=== PATIENT | female | born 1950 | race Caucasian/White ===

== ENCOUNTER 2020-08-18 05:52 | Day surgery (SDC) | payer MEDICARE ==
[2020-08-15 13:01] LABS: COVID AG,FIA SOURCE NASOPHARYNGEAL
[~2020-08-18] VITALS: Ht 160 cm; Wt 54.1 kg
[~2020-08-18 05:52] MED LIST: SODIUM CHLORIDE 0.9% 0 ML ONE
[2020-08-18] MEDS ORDERED: LIDOCAINE 2% 30 ML JELLY TP ONE (05:53)
[2020-08-18] MEDS ORDERED: BENZOCAINE 20% 50 MCG/SPRAY 57 GM TP ONE (05:53)
[2020-08-18] MEDS ORDERED: ALBUTEROL SULFATE 2.5 MG/0.5 ML NEB SOLUTION NEB ONE (05:53)
[2020-08-18] MEDS ORDERED: SODIUM CHLORIDE 0.9% 1,000 ML ONE (06:23)
[2020-08-18 06:51] LABS: GLUCOMETER DEV NAME(LOC) SDS.; GLUCOSE,POINT OF CARE 319 MG/DL (70-110)
[2020-08-18] MEDS ORDERED: TOFA5TAB PO (07:03)
[2020-08-18] MEDS ORDERED: ALBU8.5H8 IH (07:03)
[2020-08-18] MEDS ORDERED: METH2.5 PO (07:03)
[2020-08-18] MEDS ORDERED: FLUT44HFA IH (07:03)
[2020-08-18] MEDS ORDERED: MONT-35 PO (07:03)
[2020-08-18] MEDS ORDERED: PIOG45TA4 PO (07:03)
[2020-08-18] MEDS ORDERED: FAMO20 PO (07:03)
[2020-08-18] MEDS ORDERED: PRED10 PO (07:03)
[2020-08-18] MEDS ORDERED: FOLI0.4T6 PO (07:03)
[2020-08-18] MEDS ORDERED: FLUT16H NASAL (07:03)
[2020-08-18] MEDS ORDERED: METF-960 PO (07:03)
[2020-08-18] MEDS ORDERED: GABA-1216 PO (07:03)
[2020-08-18] MEDS ORDERED: MIDAZOLAM HCL 2 MG/2 ML VIAL ONE (07:18)
[2020-08-18] MEDS ORDERED: FentaNYL CITRATE-PF 100 MCG/2 ML VIAL ONE (07:19)
[2020-08-18] MEDS: SODIUM CHLORIDE 0.9% 1,000 ML IV ONE (07:46)
[2020-08-18] MEDS ORDERED: MethylPREDNISolone SOD SUCC 125 MG/2 ML VIAL ONE (08:59)
[2020-08-18] MEDS: MethylPREDNISolone SOD SUCC 125 MG/2 ML VIAL IVP ONE (09:01)
[2020-08-18] MEDS ORDERED: OXYGEN THERAPY IH SCH (20:00)
== END 2020-08-18 10:05 | disposition home or self-care (01) ==
LOC: SDS 05:52 → EDSTATUS 09:30 → SDS 10:05
PROVIDERS: ATTEND Internal Medicine Critical Care Medicine
DX: J38.4 Edema of larynx (principal); B37.0 Candidal stomatitis; E11.9 Type 2 diabetes mellitus without complications; I10 Essential (primary) hypertension; Z20.828 Contact with and (suspected) exposure to other viral communicable diseases
CPT/HCPCS: 31623; 31624; 71045; 82962; 87015; 87101; 87206; 87220; 87426; 88108; 88312; C9803; J2250; J2930; J3010; J7030; 87070; J7613

== ENCOUNTER 2022-05-03 05:43 | Day surgery (SDC) | payer MEDICARE ==
[~2022-05-03] VITALS: Ht 157.5 cm; Wt 56.8 kg
[~2022-05-03 05:43] MED LIST changes: +ALBU8.5H8 IH; +FAMO20 PO; +FLUT16H NASAL; +FLUT44H IH; +FOLI0.4T6 PO; +GABA-1216 PO; +METF-1211 PO; +METH2.5 PO; +MONT-35 PO; +PIOG45TA4 PO; +PRED-729 PO; -SODIUM CHLORIDE 0.9% 0 ML ONE; +TOFA5TAB PO
[2022-05-03] MEDS ORDERED: ALBUTEROL SULFATE 2.5 MG/0.5 ML NEB SOLUTION NEB ONE (05:44)
[2022-05-03] MEDS ORDERED: BENZOCAINE 20% 50 MCG/SPRAY 57 GM TP ONE (05:44)
[2022-05-03] MEDS ORDERED: LIDOCAINE 2% 11 ML JELLY TP ONE (05:44)
[2022-05-03] MEDS ORDERED: LIDOCAINE 4% 50 ML SOLUTION TP ONE (05:44)
[2022-05-03 06:58] LABS: COVID AG,FIA SOURCE NASAL SWAB
[2022-05-03] MEDS ORDERED: SODIUM CHLORIDE 0.9% 1,000 ML IV ONE (07:00)
[2022-05-03 07:36] LABS: GLUCOMETER DEV NAME(LOC) SDS.; GLUCOSE,POINT OF CARE 179 MG/DL (70-110)
[2022-05-03] MEDS ORDERED: FentaNYL CITRATE PF 100 MCG/2 ML VIAL ONE (07:58)
[2022-05-03] MEDS ORDERED: MIDAZOLAM HCL 2 MG/2 ML VIAL ONE (07:58)
[2022-05-03] MEDS ORDERED: MethylPREDNISolone SOD SUCC 125 MG/2 ML VIAL ONE (09:07)
[2022-05-03] MEDS ORDERED: MethylPREDNISolone SOD SUCC 125 MG/2 ML VIAL IVP ONE (09:30)
[2022-05-03] MEDS ORDERED: OXYGEN THERAPY IH SCH (20:00)
== END 2022-05-03 12:05 | disposition home or self-care (01) ==
LOC: SURGERY 05:43
PROVIDERS: ATTEND Internal Medicine Critical Care Medicine
DX: J38.4 Edema of larynx (principal); B37.0 Candidal stomatitis; E11.9 Type 2 diabetes mellitus without complications; Z79.899 Other long term (current) drug therapy; Z98.890 Other specified postprocedural states
CPT/HCPCS: 31623; 82962; 87206; 87101; 87220; 87070; 31624; 71045; 87015; 87426; J3010; J2250; J2930; Q9967; C9803; 88112; 88305; 88312; J7613; Z7610

== ENCOUNTER 2024-07-02 06:36 | Day surgery (SDC) | payer OTHER ==
[~2024-07-02] VITALS: Ht 160 cm; Wt 47.3 kg
[~2024-07-02 06:36] MED LIST changes: -FLUT16H NASAL; +FLUT16SP NASAL; -METH2.5 PO; +METH2.5T7 PO; +SODIUM CHLORIDE 0.9% 1,000 ML ONE
[2024-07-02] MEDS ORDERED: BENZOCAINE 20% 50 MCG/SPRAY 57 GM TP ONE (06:37)
[2024-07-02] MEDS ORDERED: LIDOCAINE 2% 11 ML JELLY TP ONE (06:37)
[2024-07-02] MEDS ORDERED: ALBUTEROL SULFATE 2.5 MG/0.5 ML NEB SOLUTION NEB ONE (06:37)
[2024-07-02] MEDS ORDERED: LIDOCAINE 4% 50 ML SOLUTION TP ONE (06:37)
[2024-07-02 08:06] LABS: GLUCOMETER DEV NAME(LOC) SDS.; GLUCOSE,POINT OF CARE 146 MG/DL (70-110)
[2024-07-02] MEDS: SODIUM CHLORIDE 0.9% 1,000 ML IV ONE (08:10)
[2024-07-02] MEDS ORDERED: FentaNYL CITRATE PF 100 MCG/2 ML VIAL ONE (08:47)
[2024-07-02] MEDS ORDERED: MIDAZOLAM HCL 2 MG/2 ML VIAL ONE (08:47)
[2024-07-02 09:45] VITALS: PULSE 54; RESP 18; O2SAT 99
[2024-07-02] MEDS ORDERED: MethylPREDNISolone SOD SUCC 125 MG/2 ML VIAL ONE (09:58)
[2024-07-02] MEDS: MethylPREDNISolone SOD SUCC 125 MG/2 ML VIAL IVP ONE (10:14)
== END 2024-07-02 15:00 | disposition home or self-care (01) ==
LOC: SURGERY 06:36
PROVIDERS: ATTEND Internal Medicine Critical Care Medicine
DX: R05.3 Chronic cough (principal); R06.2 Wheezing; R49.0 Dysphonia; R04.2 Hemoptysis; J47.9 Bronchiectasis, uncomplicated; J38.4 Edema of larynx; B37.0 Candidal stomatitis; E11.9 Type 2 diabetes mellitus without complications; Z98.818 Other dental procedure status
CPT/HCPCS: 31623; 31624; 71045; 82962; 87015; 87070; 87101; 87206; 87220; 88108; J2250; J2919; J3010; J7030; J7613; Z7610

== ENCOUNTER → 2025-06-10 | Day surgery (SDC) | payer OTHER ==
[~2025-06-10] VITALS: Ht 160 cm; Wt 50.0 kg
[~2025-06-10] MED LIST changes: +ALBUTEROL SULFATE 2.5 MG/0.5 ML NEB SOLUTION NEB ONE; +ALEN70TA65 PO; +BENZOCAINE 20% 50 MCG/SPRAY 57 GM ONE; +CALC-1000 PO; +EMPA25TA3 PO; +FLUT1BLS15 IH; +FentaNYL CITRATE PF 100 MCG/2 ML VIAL ONE; +LIDOCAINE 2% 11 ML JELLY ONE; +LIDOCAINE 4% 50 ML SOLUTION ONE; +LINA5TAB PO; +MIDAZOLAM HCL 2 MG/2 ML VIAL ONE; +TRAZ-252 PO
[2025-06-10] MEDS: SODIUM CHLORIDE 0.9% 1,000 ML IV ONE (08:03)
[2025-06-10 08:41] LABS: GLUCOMETER DEV NAME(LOC) SDS.; GLUCOSE,POINT OF CARE 123 MG/DL (70-110)
[2025-06-10 10:30] VITALS: PULSE 77; RESP 16; O2SAT 100
== END | disposition home or self-care (01) ==
LOC: SDS 06:47
PROVIDERS: ATTEND Internal Medicine Critical Care Medicine
DX: R05.3 Chronic cough (principal); R49.0 Dysphonia; R04.2 Hemoptysis; R06.1 Stridor; J47.9 Bronchiectasis, uncomplicated; R91.8 Other nonspecific abnormal finding of lung field; I10 Essential (primary) hypertension; E11.9 Type 2 diabetes mellitus without complications; J45.909 Unspecified asthma, uncomplicated; Z79.899 Other long term (current) drug therapy; Z98.890 Other specified postprocedural states
CPT/HCPCS: 31623; 82962; 87206; 87101; 87220; 87070; 31624; 94640; 71045; 87015; J3010; J2250; J2919; J7030; 88108; J7613; Z7610